=== PATIENT | female | born 1965 | race Hispanic/Latino ===

== ENCOUNTER 2016-06-16 22:23 | Emergency (ER) | payer OTHER ==
[2016-06-16 22:59] LABS: #Basophils 0.1 thou/uL (0.0-0.2); #Eosinphils 0.1 thou/uL (0.0-0.7); #Lymphocytes 2.6 thou/uL (1.20-3.40); #Monocytes 0.4 thou/uL (0.11-0.59); #Neutrophils 2.5 thou/uL (1.40-6.50); %Basophils 1.2 % (0.0-1.0); %Eosinophils 1.6 % (0.0-10.0); %Monocytes 7.5 % (0.0-10.0); Hematocrit 46.6 % (36.0-47.0); Mean Platelet Volume 7.7 fL (7.4-10.4); White Blood Cell (WBC) Count 5.7 thou/uL (4.8-10.8)
[2016-06-16 23:11] LABS: ALT (SGPT) 19 U/L (0-55); AST (SGOT) 16 U/L (5-34); Alkaline Phosphatase 129 U/L (40-150); Anion Gap 13 mmol/L (10-20); BUN (Urea Nitrogen) 15 mg/dL (9.8-20.1); Bilirubin, Total 0.2 mg/dL (0.2-1.2); Calc. Creatinine Clearance 0 mL/min (70-130); Carbon Dioxide 26 mmol/L (22-29); Chloride 108 mmol/L (98-107); Estimated GFR-MDRD Greater than 90; Globulin 2.4 g/dL (2.4-3.5)
[2016-06-16 23:14] LABS: Troponin I Less than 0.010 ng/mL (< 0.028)
[2016-06-17] MEDS ORDERED: Nitroglycerin 2% Ointment 1 INCH/1 GM Packet ONE (00:07)
--- NOTE | 2016-06-17 00:42 | ERRECORD ---
[facility] EMERGENCY RECORD HPI CHEST PAIN (22:41 WMEI) CHIEF COMPLAINT: Patient presents for evaluation of chest pain, ongoing, Patient presents for evaluation of down to 5/10. HISTORIAN: History provided by patient. LOCATION: Symptoms are localized, most severe in substernal area. QUALITY: Pain is dull in nature, described as a sensation of fullness. TIME COURSE: Sudden onset of symptoms, Symptoms are improving, 20/30 min. ASSOCIATED WITH: No associated nausea, No associated shortness of breath, hot flash. EXACERBATED BY: Patient's condition exacerbated by nothing. RELIEVED BY: Patient's condition relieved by nothing. HEART SCORE: Patients history is Moderately Suspicious (1), Patients ECG is normal (0), Patients age is greater than 45 and less than 65 (1), Patient has 1 or 2 risk factors (1). WELLS CRITERIA FOR PE: No clinical signs and symptoms of a DVT (0), Patient does not have, or is likely to not have, a primary diagnosis of PE (0), Patient's heart rate is less than 100 (0), Patient has no history of immobilization within 3 days, nor any surgical history within the past 4 weeks (0), Patient has not had an objectively diagnosed PE or DVT previously (0), Patient does not have hemoptysis (0), Patient has not had treatment for malignancy within the last 6 months, nor palliative (0). ROS (22:43 WMEI) CONSTITUTIONAL: Historian denies chills, denies fatigue, denies fever. EYES: Historian denies eye pain, denies eye discharge. ENT: Historian denies rhinorrhea, denies sore throat. CARDIOVASCULAR: Historian reports chest pain, no radiation, Historian denies exercise intolerance. RESPIRATORY: Historian denies cough, denies shortness of breath. GI: Historian denies abdominal pain, denies nausea, denies vomiting. GENITOURINARY FEMALE: Historian denies frequency, denies urgency. MUSCULOSKELETAL: Historian denies joint stiffness, denies joint swelling. SKIN: Historian denies skin changes, denies skin lesions. NEUROLOGIC: Historian denies focal weakness, denies mental status changes. ALLERGIC/IMMUNOLOGIC: Historian denies eczema, denies food allergies. PSYCHIATRIC: Historian denies depression, denies drug abuse. PAST MEDICAL HISTORY MEDICAL HISTORY: No past medical history of cardiac disease, No &a-1R&a+25V*p+0X*[id number]*c202B*c15G*c2P*p-0X&a-25V&a+1R Name: Ashely Del Angel : 1965 F51 MedRec: [id number] AcctNum: [id number] Prepared: FriJun 17, 2016 00:24 by Interface Page 1 of 4 pMD [facility] EMERGENCY RECORD past medical history of diabetes. (22:46 WMEI) Notes: 5 slip disk. hx [place]. HTN non compliant with treatment. reviewed 06/16/16. (22:44 CHOB) FEMALE SURGICAL HISTORY: plate put in neck due to slip disk. lymph node removed in neck., Surgical history of hysterectomy, Notes: partial. reviewed 06/16/16. (22:44 CHOB) PSYCHIATRIC HISTORY: No previous psychiatric history. reviewed 06/16/16. (22:44 CHOB) SOCIAL HISTORY: Patient denies alcohol use, Patient denies drug use, Patient currently uses tobacco, smokes cigarettes, Patient smokes 1 pack per day. reviewed 06/16/16. (22:44 CHOB) Patient currently uses tobacco, smokes cigarettes, daily. (22:46 WMEI) KNOWN ALLERGIES Bactrim DS: Severity: Moderate, Source: Patient, - burning to chest CECHLOR (Unconfirmed): Reaction: Rash Ceclor: Reaction: Rash, Source: Patient esomeprazole magnesium (Unconfirmed): Reaction: SEVERE HEADACHES metaxalone (Unconfirmed): Reaction: SEVERE N/V NexIUM: Severity: Mild, Source: Patient, - migraine Skelaxin: Severity: Moderate, Source: Patient, - vomting sulfamethoxazole (Unconfirmed): Reaction: "CHEST VASQUES" trimethoprim (Unconfirmed): Reaction: "CHEST VASQUES" CURRENT MEDICATIONS (22:41 CHOB) ranitidine HCl: CAPSULE : Strength - 150 mg : ORAL Patient Dose: Oral once a day (in the morning).dose unknown. VITAL SIGNS VITAL SIGNS: BP: 155/96, Pulse: 87 (Regular), Resp: 18 (Non-Labored), Temp: 97.6 (Oral), Pain: 5 (Intermittent), O2 sat: 98 on Room Air, Time: 06/16/2016 22:35. (22:35 CHOB) BP: 127/84, Pulse: 78, Resp: 16, Pain: 4, O2 sat: 99 on Room Air, Time: 06/16/2016 23:00. (23:00 LSMI) BP: 124/77, Pulse: 82, Resp: 18, Pain: 5, O2 sat: 99 on Room Air, Time: 06/16/2016 23:19. (23:19 LSMI) BP: 125/81, Pulse: 78, Resp: 20, O2 sat: 98 on Room Air, Time: 06/16/2016 23:45. (23:45 LSMI) BP: 169/90, Pulse: 83, Resp: 22, Temp: 97.9 (Oral), Pain: 4 (Intermittent), O2 sat: 97 on Room Air, Time: 06/17/2016 00:12. (FriJun 17, 2016 00:12 LSMI) PHYSICAL EXAM (22:44 WMEI) CONSTITUTIONAL: Vital Signs Reviewed, Patient appears non toxic, Patient alert and oriented to person, place and time. EYES: Conjunctiva, Sclera. &a-1R&a+25V*p+0X*[id number]*c202B*c15G*c2P*p-0X&a-25V&a+1R Name: Ashely Del Angel : 1965 F51 MedRec: [id number] AcctNum: [id number] Prepared: FriJun 17, 2016 00:24 by Interface Page 2 of 4 D [facility] EMERGENCY RECORD ENT: Ear exam normal, Nose exam normal, Pharynx exam normal. NECK: Neck exam included findings of normal range of motion, Trachea midline. RESPIRATORY CHEST: Breath sounds clear. CARDIOVASCULAR: Heart rate regular rate and rhythm, Heart sounds normal. ABDOMEN FEMALE: Abdominal exam included findings of abdomen tender, to the left upper quadrant, mild intensity, Liver normal, Spleen normal, no distension. BACK: Back exam included findings of normal inspection, range of motion normal. UPPER EXTREMITY: Upper extremity exam included findings of inspection normal, Range of motion normal, Motor strength normal. LOWER EXTREMITY: Lower extremity exam included findings of inspection normal, Range of motion normal, Motor strength normal. NEURO: Nancy coma scale 15, Neuro exam findings include patient oriented to person, place and time, Speech normal, Gait normal. SKIN: Skin exam included findings of skin warm, dry, and normal in color. LYMPHATIC: Lymphatic exam normal. PSYCHIATRIC: Psychiatric exam included findings of patient oriented to person place and time, Normal affect, Judgment normal, Insight normal. EKG INTERPRETATION (FriJun 17, 2016 00:03 WMEI) 12 LEAD EKG INTERPRETATION: 12 lead EKG interpreted by Emergency Department Physician at time of study, 12 lead EKG shows, with no ectopics. RADIOLOGYINTERPRETATION (FriJun 17, 2016 00:03 WMEI) CMM INSPECTOR: Preliminary review of x-rays by, ED Physician, chest wnl. MEDICATION ADMINISTRATION SUMMARY Drug Name: nitroglycerin transdermal, Dose Ordered: 1 inch, Route: Topical, Status: Given, Time: 00:05 06/17/2016, Drug Name: Adult Low Dose Aspirin, Dose Ordered: 324 mg, Route: Oral, Status: Given, Time: 22:39 06/16/2016, Detailed record available in Medication Service section. PROBLEM LIST No recorded problems DIAGNOSIS (FriJun 17, 2016 00:21 WMEI) FINAL: PRIMARY: chest pain rule out mi. PRESCRIPTION No recorded prescriptions &a-1R&a+25V*p+0X*[id number]*c202B*c15G*c2P*p-0X&a-25V&a+1R Name: Ashely Del Angel : 1965 F51 MedRec: [id number] AcctNum: [id number] Prepared: FriJun 17, 2016 00:24 by Interface Page 3 of 4 pMD [facility] EMERGENCY RECORD DISPOSITION PATIENT: Disposition Type: Transfer, Disposition: Transfer to [facility], Disposition Transport: Ambulance, Condition: Fair. (FriJun 17, 2016 00:21 WMEI) Patient left the department. (FriJun 17, 2016 00:21 CHOB) [place]: JOSE ALFREDO=GUILLERMO Miranda Christina LSMI=SKYE Santiago Leah WMEI=DO Conde William &a-1R&a+25V*p+0X*[id number]*c202B*c15G*c2P*p-0X&a-25V&a+1R Name: Ashely Del Angel : 1965 F51 MedRec: [id number] AcctNum: [id number] Prepared: FriJun 17, 2016 00:24 by Interface Page 4 of 4 pMD MTDD
--- NOTE | 2016-06-17 00:53 | PICIS ---
[facility] EMERGENCY RECORD TRIAGE ([place] Jun 16, 2016 22:39 CHOB) TRIAGE NOTES: chest pain started 30 minutes ago. pain is located midsternal and just to the left. pt denies soa. states pain radiates to rt side. no other c/c voiced. pt was sitting watching tv when pain started. pt states she had a hot flash when pain started. denies diaphoresis. ([place] Jun 16, 2016 22:39 CHOB) PATIENT: NAME: Ashely Del Angel, AGE: 51, GENDER: female, : Sun 1965, TIME OF GREET: [place] Jun 16, 2016 22:24, PREFERRED LANGUAGE: Latvian, ETHNICITY: or , ECODE BILLING MAP: [facility], SSN: [id number], Zip Code: [address], KG WEIGHT: 53.52 (est.), PHONE: , , , PERSON ID: [id number], PAYMENT: [place], PCP: MD Pimentel Kyle. ([place] Jun 16, 2016 22:39 CHOB) COMPLAINT: HIGH RISK COMPLAINT: Chest Pain. ([place] Jun 16, 2016 22:39 CHOB) ADMISSION: URGENCY: 2 Emergent, ADMISSION SOURCE: Home, TRANSPORT: CAR, BED: ER -01. ([place] Jun 16, 2016 22:39 CHOB) ASSESSMENT: Assessment: PT A/OX4, GCS 15 (4,5,6) SPEAKS FULL SENTENCES, SKIN PWD, RESPIRATIONS EVEN NON LABORED. AMBULATES WITH STEADY GAIT. NO ACUTE DISTRESS NOTED., Symptoms began 06/16/2016 22:15. (22:44 CHOB) PAIN: Patient complains of pain described as, burning, Location MID CHEST, Pain is intermittent, No aggravating factors, No efforts tried to relieve symptoms. (22:44 CHOB) IMMUNIZATIONS: Flu vaccine not up to date, Tetanus immunization up to date, Date of immunization: 2011. (22:44 CHOB) SIRS SCORING: Heart Rate 55-109 (0), Temp range 96.8-101.1 (0), respiratory rate 12-24 (0), Mental Status altered: no (0), Infection or Suspected Infection: No. (22:44 CHOB) TRIAGE SCREENING: Patient denies suicidal ideation, Patient denies presence of domestic violence. (22:44 CHOB) PROVIDERS: TRIAGE NURSE: Milagros Miranda RN. ([place] Jun 16, 2016 22:39 CHOB) VITAL SIGNS: BP 155/96, Pulse 87, (Regular), Resp 18, (Non-Labored), Temp 97.6, (Oral), Pain 5, (Intermittent), O2 Sat 98, on Room Air, Time 06/16/2016 22:35. (22:35 CHOB) PREVIOUS VISIT ALLERGIES: Bactrim DS, Ceclor, NexIUM, Skelaxin. ([place] Jun 16, 2016 22:39 CHOB) Bactrim DS, Ceclor, NexIUM, Skelaxin. (22:44 CHOB) KNOWN ALLERGIES Bactrim DS: Severity: Moderate, Source: Patient, - burning to chest CECHLOR (Unconfirmed): Reaction: Rash Ceclor: Reaction: Rash, Source: Patient esomeprazole magnesium (Unconfirmed): Reaction: SEVERE HEADACHES metaxalone (Unconfirmed): Reaction: SEVERE N/V NexIUM: Severity: Mild, Source: Patient, - migraine Skelaxin: Severity: Moderate, Source: Patient, - vomting &a-1R&a+25V*p+0X*e6814Y*c202B*c15G*c2P*p-0X&a-25V&a+1R Name: Ashely Del Angel : 1965 F51 MedRec: [id number] AcctNum: [id number] Prepared: FriJun 17, 2016 01:31 by Interface Page 1 of 9 pMD [facility] EMERGENCY RECORD sulfamethoxazole (Unconfirmed): Reaction: "CHEST VASQUES" trimethoprim (Unconfirmed): Reaction: "CHEST VASQUES" CURRENT MEDICATIONS (22:41 CHOB) ranitidine HCl: CAPSULE : Strength - 150 mg : ORAL Patient Dose: Oral once a day (in the morning).dose unknown. VITAL SIGNS VITAL SIGNS: BP: 155/96, Pulse: 87 (Regular), Resp: 18 (Non-Labored), Temp: 97.6 (Oral), Pain: 5 (Intermittent), O2 sat: 98 on Room Air, Time: 06/16/2016 22:35. (22:35 CHOB) BP: 127/84, Pulse: 78, Resp: 16, Pain: 4, O2 sat: 99 on Room Air, Time: 06/16/2016 23:00. (23:00 LSMI) BP: 124/77, Pulse: 82, Resp: 18, Pain: 5, O2 sat: 99 on Room Air, Time: 06/16/2016 23:19. (23:19 LSMI) BP: 125/81, Pulse: 78, Resp: 20, O2 sat: 98 on Room Air, Time: 06/16/2016 23:45. (23:45 LSMI) BP: 169/90, Pulse: 83, Resp: 22, Temp: 97.9 (Oral), Pain: 4 (Intermittent), O2 sat: 97 on Room Air, Time: 06/17/2016 00:12. (FriJun 17, 2016 00:12 LSMI) BP: 169/80, Pulse: 84, Resp: 18, Temp: 97.2, Pain: 5, O2 sat: 98 on RA, Time: 06/17/2016 00:20. (FriJun 17, 2016 00:20 CHOB) NURSING ASSESSMENT: CARDIOVASCULAR (22:44 CHOB) CONSTITUTIONAL: Complex assessment performed, Patient arrives ambulatory, Gait steady, History obtained from patient, Patient appears comfortable, Patient cooperative, Patient alert, Oriented to person, place and time, Skin warm, Skin dry, Skin normal in color, Mucous membranes pink, Mucous membranes moist, Patient is well-groomed, Patient complains of CHEST PAIN. PAIN: Patient with sudden onset of pain, burning pain, midsternal, Pain radiates, RT SIDE OF BACK, on a scale 0-10 patient rates pain as 5, Pain exacerbated by nothing. CARDIOVASCULAR: Cardiovascular assessment findings include heart rate normal, Heart rhythm normal sinus, Heart sounds normal, S1, S2, Left radial pulse +3(easily palpated, considered normal), Right radial pulse +3(easily palpated, considered normal), Left dorsalis pedis pulse +3(easily palpated, considered normal), Right dorsalis pedis pulse +3(easily palpated, considered normal). RESPIRATORY/CHEST: Breath sounds clear, Respiratory assessment findings include respiratory effort easy, Respirations regular, Conversing normally, Neck and chest exam findings include trachea midline, Chest expansion equal, Chest movement symmetrical, no signs of distress, no associated cough noted, no associated fever, no associated fume exposure. SAFETY: Side rails up, Cart/Stretcher in lowest position, Family at bedside, Call light within reach, Hospital ID band on. &a-1R&a+25V*p+0X*m9766O*c202B*c15G*c2P*p-0X&a-25V&a+1R Name: Ashely Del Angel : 1965 F51 MedRec: [id number] AcctNum: [id number] Prepared: FriJun 17, 2016 01:31 by Interface Page 2 of 9 D [facility] EMERGENCY RECORD NURSING PROCEDURE: EVAPORATOR (22:41 CHOB) PATIENT IDENTIFIER: Patient actively involved in identification process, Patient's identity verified by patient stating name, Patient's identity verified by patient stating date. EVAPORATOR: Cardiac monitoring indicated for complaint of chest pain, Patient placed on office manager, Heart rate: 85, showing normal sinus rhythm, without ectopy, with no ST segment changes, Strip posted on chart, Patient placed on non-invasive blood pressure monitor, with disposable blood pressure cuff applied, Patient placed on continuous pulse oximetry, Adult/pediatric oxisensor applied, Oxygen saturation 99%. FOLLOW-UP: After procedure, alarms set and on, After procedure, patient tolerating monitoring. SAFETY: Side rails up, Cart/Stretcher in lowest position, Family at bedside, Call light within reach, Hospital ID band on. NURSING PROCEDURE: EKG CHART (22:40 CHOB) PATIENT IDENTIFIER: Patient actively involved in identification process, Patient's identity verified by patient stating name, Patient's identity verified by patient stating date. EKG: EKG indicated for complaint of chest pain, 12 lead EKG performed on the left chest, done by SKYE GARCIA, first EKG. FOLLOW-UP: After procedure, EKG for interpretation given to Dr. CONDE, Notes: NSR. SAFETY: Side rails up, Cart/Stretcher in lowest position, Family at bedside, Call light within reach, Hospital ID band on. NURSING PROCEDURE: IV (22:50 CHOB) PATIENT IDENITIFIER: Patient actively involved in identification process, Patient's identity verified by patient stating name, Patient's identity verified by patient stating date. IV SITE 1: IV therapy indicated for hydration, IV therapy indicated for medication administration, IV established, to the right antecubital, using a 20 gauge catheter, in one attempt, IV site prepped with CHLORAPREP, Saline lock established, Flushed with normal saline (mls): 10, Labs drawn at time of placement, labeled in the presence of the patient and sent to lab. FOLLOW-UP SITE 1: After procedure, sterile transparent dressing applied, After procedure, IV line connections checked and properly labeled. SAFETY: Side rails up, Cart/Stretcher in lowest position, Family at bedside, Call light within reach, Hospital ID band on. NURSING PROCEDURE: NURSE NOTES NURSES NOTES: Notes: TRANSFER CENTER CONTACTED/INITIAL CONTACT MADE W/ RECEIVING FACILITY AT 0003. (FriJun 17, 2016 00:03 CHOB) Notes: PER MILAGROS W/ TRANSFER CENTER: ADMITTING PHYSICANDR RODRIGUEZ, OBTAINED AT 0007. (FriJun 17, 2016 00:07 CHOB) &a-1R&a+25V*p+0X*l4684R*c202B*c15G*c2P*p-0X&a-25V&a+1R Name: BeanAshely : 1965 F51 MedRec: [id number] AcctNum: [id number] Prepared: FriJun 17, 2016 01:31 by Interface Page 3 of 9 pMD [facility] EMERGENCY RECORD Notes: EMS NOTIFIED AND REQUESTED TRANSFER TO [facility]. (FriJun 17, 2016 00:08 CHOB) Notes: EMS ARRIVED. (FriJun 17, 2016 00:18 CHOB) Notes: PT TO [facility] VIA MEDIC 21 PER CART WITHOUT INCIDENT FOR DX CHEST PAIN. (FriJun 17, 2016 00:20 CHOB) NURSING PROCEDURE: TRANSFER (FriJun 17, 2016 00:20 CHOB) TRANSFER: Reason for transfer need for specialized care, Diagnosis: CHEST PAIN, Accepting institution: [facility], Accepting physician: MICHAEL, Referring physician: OREN, Transported by non-urgent ambulance, Report called to receiving facility, GUILLERMO ZAIID, Provided opportunity to answer questions, Bed assigned TO ER, Summary of Care printed, Copy of patient record prepared for receiving facility, Status of patient's valuables documented on chart, Medication reconciliation form prepared and sent to receiving facility, Patient consent for transfer signed, Patient given appropriate sedation for safe transport, Family member contacted, FAMILIY BEDSIDE. BELONGINGS: Belongings and valuables with patient at time of discharge include:, Belongings remain with patient. EQUIPMENT WITH PATIENT: Equipment with patient at time of transfer office manager, Saline lock intact and patent at time of transfer, Equipment with patient at time of transfer O2 MONITOR. SAFETY: Side rails up, Cart/Stretcher in lowest position, Family at bedside, Call light within reach, Hospital ID band on. VITAL SIGNS: BP: 169, / 80, Pulse: 84, Resp: 18, Temp: 97.2, Pain: 5, O2 sat: 98, on: RA. ORDER DETAILS Order Name: Cardiac Profile w/CKMB & Troponin - I, Status: Active, Time: 22:41 06/16/2016, User: [email or web address], - Ordered for: DO Conde William, - Entered by: DO Conde William - Sun Jun 16, 2016 22:41, - Quantity: 1, Order Name: CBC with Differential, Status: Active, Time: 22:41 06/16/2016, User: [email or web address], - Ordered for: DO Conde William, - Entered by: DO Conde William - Sun Jun 16, 2016 22:41, - Quantity: 1, Order Name: Comprehensive Metabolic Panel, Status: Active, Time: 22:41 06/16/2016, User: [email or web address], - Ordered for: DO Conde William, - Entered by: DO Conde William - Sun Jun 16, 2016 22:41, - Quantity: 1, Order Name: D-Dimer (Quantitative), Status: Active, Time: 22:41 06/16/2016, User: JAGDEEP, - Ordered for: DO Conde William, - Entered by: DO Conde William - Sun Jun 16, 2016 22:41, - Quantity: 1, &a-1R&a+25V*p+0X*b3201U*c202B*c15G*c2P*p-0X&a-25V&a+1R Name: Ashely Del Angel : 1965 F51 MedRec: [id number] AcctNum: [id number] Prepared: FriJun 17, 2016 01:31 by Interface Page 4 of 9 D [facility] EMERGENCY RECORD Order Name: EKG 12 Lead in Emergency Room, Status: Active, Time: 22:41 06/16/2016, User: [email or web address], - Ordered for: DO Conde William, - Entered by: DO Conde William - Sun Jun 16, 2016 22:41, - Quantity: 1, Order Name: SALINE LOCK, Status: Done, Time: 22:49 06/16/2016, User: LSMI, - Ordered for: DO Conde William, - Entered by: DO Conde William - Sun Jun 16, 2016 22:41, - Quantity: 1, Order Name: Thyroid Stimulating Hormone, Status: Active, Time: 22:47 06/16/2016, User: JAGDEEP, - Ordered for: DO Conde William, - Entered by: DO Conde William - Sun Jun 16, 2016 22:47, - Quantity: 1, Order Name: XR Chest 1 View Portable, Status: Active, Time: 22:41 06/16/2016, User: JAGDEEP, - Ordered for: DO Conde William, - Entered by: DO Conde William - Sun Jun 16, 2016 22:41, - Quantity: 1. MEDICATION ADMINISTRATION SUMMARY Drug Name: nitroglycerin transdermal, Dose Ordered: 1 inch, Route: Topical, Status: Given, Time: 00:05 06/17/2016, Drug Name: Adult Low Dose Aspirin, Dose Ordered: 324 mg, Route: Oral, Status: Given, Time: 22:39 06/16/2016, Detailed record available in Medication Service section. MEDICATION SERVICE Adult Low Dose Aspirin: Order: Adult Low Dose Aspirin (aspirin) - Dose: 324 mg : Oral Schedule: Now Ordered by: Alexandre Conde DO Entered by: SKYE Castro Jun 16, 2016 22:53 , Acknowledged by: SKYE Castro Jun 16, 2016 22:54 Documented as given by: SKYE Castro Jun 16, 2016 22:39 Patient, Medication, Dose, Route and Time verified prior to administration. Site: Medication administered P.O., Correct patient, time, route, dose and medication confirmed prior to administration, Patient advised of actions and side-effects prior to administration, Allergies confirmed and medications reviewed prior to administration, Patient in position of comfort, Side rails up, Cart in lowest position, Family at bedside, Call light in reach. nitroglycerin transdermal: Order: nitroglycerin transdermal (nitroglycerin) - Dose: 1 inch : Topical Schedule: Now Ordered by: Alexandre Conde DO Entered by: Alexandre Conde DO FriJun 17, 2016 00:06 , &a-1R&a+25V*p+0X*k6213Y*c202B*c15G*c2P*p-0X&a-25V&a+1R Name: Ashely Del Angel : 1965 F51 MedRec: [id number] AcctNum: [id number] Prepared: FriJun 17, 2016 01:31 by Interface Page 5 of 9 pMD [facility] EMERGENCY RECORD Acknowledged by: Altagracia Santiago LVN FriJun 17, 2016 00:06 Documented as given by: Altagracia Santiago LVN FriJun 17, 2016 00:05 Patient, Medication, Dose, Route and Time verified prior to administration. Skin cleansed prior to administration, Shaving required prior to administration, Correct patient, time, route, dose and medication confirmed prior to administration, Patient advised of actions and side-effects prior to administration, Allergies confirmed and medications reviewed prior to administration, Advised not to ambulate without assistance, Patient in position of comfort, Side rails up, Cart in lowest position, Family at bedside, Call light in reach. HPI CHEST PAIN (22:41 WMEI) CHIEF COMPLAINT: Patient presents for evaluation of chest pain, ongoing, Patient presents for evaluation of down to 5. HISTORIAN: History provided by patient. LOCATION: Symptoms are localized, most severe in substernal area. QUALITY: Pain is dull in nature, described as a sensation of fullness. TIME COURSE: Sudden onset of symptoms, Symptoms are improving, 20/30 min. ASSOCIATED WITH: No associated nausea, No associated shortness of breath, hot flash. EXACERBATED BY: Patient's condition exacerbated by nothing. RELIEVED BY: Patient's condition relieved by nothing. HEART SCORE: Patients history is Moderately Suspicious (1), Patients ECG is normal (0), Patients age is greater than 45 and less than 65 (1), Patient has 1 or 2 risk factors (1). WELLS CRITERIA FOR PE: No clinical signs and symptoms of a DVT (0), Patient does not have, or is likely to not have, a primary diagnosis of PE (0), Patient's heart rate is less than 100 (0), Patient has no history of immobilization within 3 days, nor any surgical history within the past 4 weeks (0), Patient has not had an objectively diagnosed PE or DVT previously (0), Patient does not have hemoptysis (0), Patient has not had treatment for malignancy within the last 6 months, nor palliative (0). ROS (22:43 WMEI) CONSTITUTIONAL: Historian denies chills, denies fatigue, denies fever. EYES: Historian denies eye pain, denies eye discharge. ENT: Historian denies rhinorrhea, denies sore throat. CARDIOVASCULAR: Historian reports chest pain, no radiation, Historian denies exercise intolerance. RESPIRATORY: Historian denies cough, denies shortness of breath. GI: Historian denies abdominal pain, denies nausea, denies vomiting. &a-1R&a+25V*p+0X*i2159V*c202B*c15G*c2P*p-0X&a-25V&a+1R Name: Ashely Del Angel : 1965 F51 MedRec: [id number] AcctNum: [id number] Prepared: FriJun 17, 2016 01:31 by Interface Page 6 of 9 pMD [facility] EMERGENCY RECORD GENITOURINARY FEMALE: Historian denies frequency, denies urgency. MUSCULOSKELETAL: Historian denies joint stiffness, denies joint swelling. SKIN: Historian denies skin changes, denies skin lesions. NEUROLOGIC: Historian denies focal weakness, denies mental status changes. ALLERGIC/IMMUNOLOGIC: Historian denies eczema, denies food allergies. PSYCHIATRIC: Historian denies depression, denies drug abuse. PAST MEDICAL HISTORY MEDICAL HISTORY: No past medical history of cardiac disease, No past medical history of diabetes. (22:46 WMEI) Notes: 5 slip disk. hx Guillian Benicia. HTN non compliant with treatment. reviewed 06/16/16. (22:44 CHOB) FEMALE SURGICAL HISTORY: plate put in neck due to slip disk. lymph node removed in neck., Surgical history of hysterectomy, Notes: partial. reviewed 06/16/16. (22:44 CHOB) PSYCHIATRIC HISTORY: No previous psychiatric history. reviewed 06/16/16. (22:44 CHOB) SOCIAL HISTORY: Patient denies alcohol use, Patient denies drug use, Patient currently uses tobacco, smokes cigarettes, Patient smokes 1 pack per day. reviewed 06/16/16. (22:44 CHOB) Patient currently uses tobacco, smokes cigarettes, daily. (22:46 WMEI) PHYSICAL EXAM (22:44 WMEI) CONSTITUTIONAL: Vital Signs Reviewed, Patient appears non toxic, Patient alert and oriented to person, place and time. EYES: Conjunctiva, Sclera. ENT: Ear exam normal, Nose exam normal, Pharynx exam normal. NECK: Neck exam included findings of normal range of motion, Trachea midline. RESPIRATORY CHEST: Breath sounds clear. CARDIOVASCULAR: Heart rate regular rate and rhythm, Heart sounds normal. ABDOMEN FEMALE: Abdominal exam included findings of abdomen tender, to the left upper quadrant, mild intensity, Liver normal, Spleen normal, no distension. BACK: Back exam included findings of normal inspection, range of motion normal. UPPER EXTREMITY: Upper extremity exam included findings of inspection normal, Range of motion normal, Motor strength normal. LOWER EXTREMITY: Lower extremity exam included findings of inspection normal, Range of motion normal, Motor strength normal. NEURO: [place] coma scale 15, Neuro exam findings include patient oriented to person, place and time, Speech normal, Gait normal. SKIN: Skin exam included findings of skin warm, dry, and normal in color. LYMPHATIC: Lymphatic exam normal. &a-1R&a+25V*p+0X*g4805R*c202B*c15G*c2P*p-0X&a-25V&a+1R Name: BeanTierrajustin Jhaveri : 1965 F51 MedRec: [id number] AcctNum: [id number] Prepared: FriJun 17, 2016 01:31 by Interface Page 7 of 9 pMD [facility] EMERGENCY RECORD PSYCHIATRIC: Psychiatric exam included findings of patient oriented to person place and time, Normal affect, Judgment normal, Insight normal. LAB INTERPRETATION (FriJun 17, 2016 00:04 WMEI) INTERPRETATION: I reviewed the lab results, Cardiac enzymes normal. EVENTS TRANSFER: Triage to Emergency Emergency Room -01. (22:39 CHOB) Removed from Emergency Emergency Room -01. (FriJun 17, 2016 00:21 CHOB) RADIOLOGYINTERPRETATION (FriJun 17, 2016 00:03 WMEI) PSYCHIATRIC TECHNICIAN ASSISTANT: Preliminary review of x-rays by, ED Physician, chest wnl. EKG INTERPRETATION (FriJun 17, 2016 00:03 WMEI) 12 LEAD EKG INTERPRETATION: 12 lead EKG interpreted by Emergency Department Physician at time of study, 12 lead EKG shows, with no ectopics. PROBLEM LIST No recorded problems DIAGNOSIS (FriJun 17, 2016 00:21 WMEI) FINAL: PRIMARY: chest pain rule out mi. DISPOSITION PATIENT: Disposition Type: Transfer, Disposition: Transfer to [facility], Disposition Transport: Ambulance, Condition: Fair. (FriJun 17, 2016 00:21 WMEI) Patient left the department. (FriJun 17, 2016 00:21 CHOB) PRESCRIPTION No recorded prescriptions IMAGING *EKG: Image captured from scanner. (23:00 LSMI) MONITOR STRIPS: Image captured from scanner. (FriJun 17, 2016 00:15 CHOB) *SUPPLY CHARGE SHEET: Image captured from scanner. (FriJun 17, 2016 00:15 CHOB) CONSENTS: Image captured from scanner. (FriJun 17, 2016 00:16 CHOB) *MEMORANDUM OF TRANSFER: Image captured from scanner. (FriJun 17, 2016 00:16 CHOB) PHYSICIAN CERTIFICATION STATEMENT: Image captured from scanner. (FriJun 17, 2016 00:16 CHOB) ADMIN (FriJun 17, 2016 01:18 WMEI) &a-1R&a+25V*p+0X*a4388M*c202B*c15G*c2P*p-0X&a-25V&a+1R Name: Bean Ashely G : 1965 F51 MedRec: [id number] AcctNum: [id number] Prepared: FriJun 17, 2016 01:31 by Interface Page 8 of 9 pMD [facility] EMERGENCY RECORD DIGITAL SIGNATURE: DO Conde William. Cal[place]: CHOB=GUILLERMO Miranda Christina LSMI=SKYE Santiago Leah WMEI=Meiser, DO, Alexandre &a-1R&a+25V*p+0X*p2437Y*c202B*c15G*c2P*p-0X&a-25V&a+1R Name: Ashely Del Angel : 1965 F51 MedRec: [id number] AcctNum: [id number] Prepared: FriJun 17, 2016 01:31 by Interface Page 9 of 9 pMD MTDD
--- NOTE | 2016-06-17 02:12 | ERRECORD ---
[facility] EMERGENCY RECORD HPI CHEST PAIN (22:41 WMEI) CHIEF COMPLAINT: Patient presents for evaluation of chest pain, ongoing, Patient presents for evaluation of down to 5/10. HISTORIAN: History provided by patient. LOCATION: Symptoms are localized, most severe in substernal area. QUALITY: Pain is dull in nature, described as a sensation of fullness. TIME COURSE: Sudden onset of symptoms, Symptoms are improving, 20/30 min. ASSOCIATED WITH: No associated nausea, No associated shortness of breath, hot flash. EXACERBATED BY: Patient's condition exacerbated by nothing. RELIEVED BY: Patient's condition relieved by nothing. HEART SCORE: Patients history is Moderately Suspicious (1), Patients ECG is normal (0), Patients age is greater than 45 and less than 65 (1), Patient has 1 or 2 risk factors (1). WELLS CRITERIA FOR PE: No clinical signs and symptoms of a DVT (0), Patient does not have, or is likely to not have, a primary diagnosis of PE (0), Patient's heart rate is less than 100 (0), Patient has no history of immobilization within 3 days, nor any surgical history within the past 4 weeks (0), Patient has not had an objectively diagnosed PE or DVT previously (0), Patient does not have hemoptysis (0), Patient has not had treatment for malignancy within the last 6 months, nor palliative (0). ROS (22:43 WMEI) CONSTITUTIONAL: Historian denies chills, denies fatigue, denies fever. EYES: Historian denies eye pain, denies eye discharge. ENT: Historian denies rhinorrhea, denies sore throat. CARDIOVASCULAR: Historian reports chest pain, no radiation, Historian denies exercise intolerance. RESPIRATORY: Historian denies cough, denies shortness of breath. GI: Historian denies abdominal pain, denies nausea, denies vomiting. GENITOURINARY FEMALE: Historian denies frequency, denies urgency. MUSCULOSKELETAL: Historian denies joint stiffness, denies joint swelling. SKIN: Historian denies skin changes, denies skin lesions. NEUROLOGIC: Historian denies focal weakness, denies mental status changes. ALLERGIC/IMMUNOLOGIC: Historian denies eczema, denies food allergies. PSYCHIATRIC: Historian denies depression, denies drug abuse. PAST MEDICAL HISTORY MEDICAL HISTORY: No past medical history of cardiac disease, No &a-1R&a+25V*p+0X*[id number]*c202B*c15G*c2P*p-0X&a-25V&a+1R Name: Ashely Del Angel : 1965 F51 MedRec: [id number] AcctNum: [id number] Prepared: FriJun 17, 2016 01:24 by Interface Page 1 of 4 pMD [facility] EMERGENCY RECORD past medical history of diabetes. (22:46 WMEI) Notes: 5 slip disk. hx Guillian York. HTN non compliant with treatment. reviewed 06/16/16. (22:44 CHOB) FEMALE SURGICAL HISTORY: plate put in neck due to slip disk. lymph node removed in neck., Surgical history of hysterectomy, Notes: partial. reviewed 06/16/16. (22:44 CHOB) PSYCHIATRIC HISTORY: No previous psychiatric history. reviewed 06/16/16. (22:44 CHOB) SOCIAL HISTORY: Patient denies alcohol use, Patient denies drug use, Patient currently uses tobacco, smokes cigarettes, Patient smokes 1 pack per day. reviewed 06/16/16. (22:44 CHOB) Patient currently uses tobacco, smokes cigarettes, daily. (22:46 WMEI) KNOWN ALLERGIES Bactrim DS: Severity: Moderate, Source: Patient, - burning to chest CECHLOR (Unconfirmed): Reaction: Rash Ceclor: Reaction: Rash, Source: Patient esomeprazole magnesium (Unconfirmed): Reaction: SEVERE HEADACHES metaxalone (Unconfirmed): Reaction: SEVERE N/V NexIUM: Severity: Mild, Source: Patient, - migraine Skelaxin: Severity: Moderate, Source: Patient, - vomting sulfamethoxazole (Unconfirmed): Reaction: "CHEST VASQUES" trimethoprim (Unconfirmed): Reaction: "CHEST VASQUES" CURRENT MEDICATIONS (22:41 CHOB) ranitidine HCl: CAPSULE : Strength - 150 mg : ORAL Patient Dose: Oral once a day (in the morning).dose unknown. VITAL SIGNS VITAL SIGNS: BP: 155/96, Pulse: 87 (Regular), Resp: 18 (Non-Labored), Temp: 97.6 (Oral), Pain: 5 (Intermittent), O2 sat: 98 on Room Air, Time: 06/16/2016 22:35. (22:35 CHOB) BP: 127/84, Pulse: 78, Resp: 16, Pain: 4, O2 sat: 99 on Room Air, Time: 06/16/2016 23:00. (23:00 LSMI) BP: 124/77, Pulse: 82, Resp: 18, Pain: 5, O2 sat: 99 on Room Air, Time: 06/16/2016 23:19. (23:19 LSMI) BP: 125/81, Pulse: 78, Resp: 20, O2 sat: 98 on Room Air, Time: 06/16/2016 23:45. (23:45 LSMI) BP: 169/90, Pulse: 83, Resp: 22, Temp: 97.9 (Oral), Pain: 4 (Intermittent), O2 sat: 97 on Room Air, Time: 06/17/2016 00:12. (FriJun 17, 2016 00:12 LSMI) BP: 169/80, Pulse: 84, Resp: 18, Temp: 97.2, Pain: 5, O2 sat: 98 on RA, Time: 06/17/2016 00:20. (FriJun 17, 2016 00:20 CHOB) PHYSICAL EXAM (22:44 WMEI) CONSTITUTIONAL: Vital Signs Reviewed, Patient appears non toxic, &a-1R&a+25V*p+0X*[id number]*c202B*c15G*c2P*p-0X&a-25V&a+1R Name: Ashely Del Angel : 1965 F51 MedRec: [id number] AcctNum: [id number] Prepared: FriJun 17, 2016 01:24 by Interface Page 2 of 4 pMD [facility] EMERGENCY RECORD Patient alert and oriented to person, place and time. EYES: Conjunctiva, Sclera. ENT: Ear exam normal, Nose exam normal, Pharynx exam normal. NECK: Neck exam included findings of normal range of motion, Trachea midline. RESPIRATORY CHEST: Breath sounds clear. CARDIOVASCULAR: Heart rate regular rate and rhythm, Heart sounds normal. ABDOMEN FEMALE: Abdominal exam included findings of abdomen tender, to the left upper quadrant, mild intensity, Liver normal, Spleen normal, no distension. BACK: Back exam included findings of normal inspection, range of motion normal. UPPER EXTREMITY: Upper extremity exam included findings of inspection normal, Range of motion normal, Motor strength normal. LOWER EXTREMITY: Lower extremity exam included findings of inspection normal, Range of motion normal, Motor strength normal. NEURO: Nancy coma scale 15, Neuro exam findings include patient oriented to person, place and time, Speech normal, Gait normal. SKIN: Skin exam included findings of skin warm, dry, and normal in color. LYMPHATIC: Lymphatic exam normal. PSYCHIATRIC: Psychiatric exam included findings of patient oriented to person place and time, Normal affect, Judgment normal, Insight normal. EKG INTERPRETATION (FriJun 17, 2016 00:03 WMEI) 12 LEAD EKG INTERPRETATION: 12 lead EKG interpreted by Emergency Department Physician at time of study, 12 lead EKG shows, with no ectopics. RADIOLOGYINTERPRETATION (FriJun 17, 2016 00:03 WMEI) OFFICE SERVICES ASSOCIATE: Preliminary review of x-rays by, ED Physician, chest wnl. MEDICATION ADMINISTRATION SUMMARY Drug Name: nitroglycerin transdermal, Dose Ordered: 1 inch, Route: Topical, Status: Given, Time: 00:05 06/17/2016, Drug Name: Adult Low Dose Aspirin, Dose Ordered: 324 mg, Route: Oral, Status: Given, Time: 22:39 06/16/2016, Detailed record available in Medication Service section. PROBLEM LIST No recorded problems DIAGNOSIS (FriJun 17, 2016 00:21 WMEI) FINAL: PRIMARY: chest pain rule out mi. PRESCRIPTION &a-1R&a+25V*p+0X*[id number]*c202B*c15G*c2P*p-0X&a-25V&a+1R Name: Ashely Del Angel : 1965 F51 MedRec: [id number] AcctNum: [id number] Prepared: FriJun 17, 2016 01:24 by Interface Page 3 of 4 pMD [facility] EMERGENCY RECORD No recorded prescriptions DISPOSITION PATIENT: Disposition Type: Transfer, Disposition: Transfer to [facility], Disposition Transport: Ambulance, Condition: Fair. (FriJun 17, 2016 00:21 WMEI) Patient left the department. (FriJun 17, 2016 00:21 CHOB) Calero: CHOMina=GUILLERMO Miranda Christina LSMRohan=SKYE Santiago Leah WMEI=DO Conde William &a-1R&a+25V*p+0X*[id number]*c202B*c15G*c2P*p-0X&a-25V&a+1R Name: Ashely Del Angel : 1965 F51 MedRec: [id number] AcctNum: [id number] Prepared: FriJun 17, 2016 01:24 by Interface Page 4 of 4 pMD MTDD
--- NOTE | 2016-06-17 10:13 | RAD ---
PORTABLE CHEST 06/16/2016 Comparison is made with a 2012 chest film. The heart is normal in size, and the lungs are clear. T here is no mediastinal widening or signs of mass. The aorta is normal in size. There are no conges tive findings or pleural effusions. No lobar infiltrates are seen. IMPRESSION: No acute thoracic findings. POS: HOME
== END 2016-06-17 00:20 | disposition short-term general hospital (02) ==
LOC: BURERS 22:23
DX: R07.9 Chest pain, unspecified (principal); F17.210 Nicotine dependence, cigarettes, uncomplicated
CPT/HCPCS: 71010; 80053; 82553; 84443; 84484; 85025; 85379; 93005

== ENCOUNTER 2016-07-04 09:27 | Outpatient (CLI) | payer OTHER ==
[2016-07-04 11:21] LABS: ALT (SGPT) 19 U/L (0-55); AST (SGOT) 16 U/L (5-34); Alkaline Phosphatase 86 U/L (40-150); Anion Gap 14 mmol/L (10-20); BUN (Urea Nitrogen) 11 mg/dL (9.8-20.1); Bilirubin, Total 0.4 mg/dL (0.2-1.2); Calc. Creatinine Clearance 0 mL/min (70-130); Calcium 9.6 mg/dL (7.8-10.44); Carbon Dioxide 26 mmol/L (22-29); Chloride 106 mmol/L (98-107); Estimated GFR-MDRD Greater than 90; Protein, Total 6.9 g/dL (6.0-8.3)
[2016-07-04 18:11] LABS: Free T3 2.59 pg/mL (1.71-3.71)
== END 2016-07-04 09:28 ==
LOC: HPCALD 09:27
PROVIDERS: ATTEND Family Medicine
DX: E04.1 Nontoxic single thyroid nodule (principal); R03.0 Elevated blood-pressure reading, without diagnosis of hypertension
CPT/HCPCS: 36415; 80053; 84439; 84443; 84481

== ENCOUNTER 2016-08-07 14:08 | Outpatient (CLI) | payer OTHER ==
--- NOTE | 2016-08-07 18:39 | ULT ---
THYROID ULTRASOUND 08/07/16 Comparison is made with the study done last year on 08/11/15. It is done to followup a 5 mm nodule in the lower portion of the right lobe. There has been virtually no change since last year. A small hypoechoic nodule is seen in the mid to inferior portion of the right lobe that today measur es 5 x 3 x 4 mm. This is virtually identical to before. No new nodules were detected. The right lobe measures 4.8 x 1.9 x 1.9 cm. The left lobe measures 4.8 x 1.6 x 1.6 cm. No surrounding adenopathy w as appreciated. IMPRESSION: Stable exam showing mild thyromegaly and a 5 mm right lobe nodule which has not changed since last y ear. POS: HOME
== END 2016-08-07 14:09 | disposition home or self-care (01) ==
LOC: BURULT 14:08
PROVIDERS: ATTEND Orthopaedic Surgery
DX: Z86.39 Personal history of other endocrine, nutritional and metabolic disease (principal)
CPT/HCPCS: 76536

== ENCOUNTER 2016-08-16 13:14 | Emergency (ER) | payer OTHER ==
[2016-08-16] MEDS ORDERED: Adacel (T-DAP) 0.5 ML VIAL ONE (13:22)
[2016-08-16 13:51] LABS: #Basophils 0.1 thou/uL (0.0-0.2); #Eosinphils 0.1 thou/uL (0.0-0.7); #Lymphocytes 3.5 thou/uL (1.20-3.40); #Monocytes 0.4 thou/uL (0.11-0.59); #Neutrophils 5.8 thou/uL (1.40-6.50); %Basophils 1.4 % (0.0-1.0); %Eosinophils 0.8 % (0.0-10.0); %Monocytes 3.9 % (0.0-10.0); Hematocrit 46.2 % (36.0-47.0); Mean Platelet Volume 6.7 fL (7.4-10.4); Red Blood Cell (RBC) Count 4.84 mill/uL (4.20-5.40)
[2016-08-16 14:07] LABS: ALT (SGPT) 24 U/L (0-55); AST (SGOT) 17 U/L (5-34); Alkaline Phosphatase 87 U/L (40-150); Anion Gap 13 mmol/L (10-20); BUN (Urea Nitrogen) 18 mg/dL (9.8-20.1); Bilirubin, Total 0.4 mg/dL (0.2-1.2); CK (CPK) 38 U/L (29-168); Calc. Creatinine Clearance 0 mL/min (70-130); Calcium 9.2 mg/dL (7.8-10.44); Carbon Dioxide 27 mmol/L (22-29); Chloride 106 mmol/L (98-107); Estimated GFR-MDRD 79; Globulin 3.1 g/dL (2.4-3.5); Magnesium 2.2 mg/dL (1.6-2.6); Protein, Total 6.9 g/dL (6.0-8.3)
== END 2016-08-16 15:04 | disposition home or self-care (01) ==
LOC: BURERS 13:14
DX: R53.1 Weakness (principal); E78.5 Hyperlipidemia, unspecified; I10 Essential (primary) hypertension; F17.210 Nicotine dependence, cigarettes, uncomplicated
CPT/HCPCS: 80053; 82533; 82550; 83735; 84443; 85025; 85652; 90715; 96360

== ENCOUNTER 2016-10-30 16:36 | Outpatient (CLI) | payer OTHER | END 2016-10-30 16:37 | disposition home or self-care (01) | LOC: HPCALD 16:36 | PROVIDERS: ATTEND Family Medicine | DX: N39.0 Urinary tract infection, site not specified (principal) | CPT/HCPCS: 87077; 87086; 87186 ==

== ENCOUNTER 2016-12-16 10:56 | Outpatient (CLI) | payer OTHER ==
[2016-12-16 11:50] LABS: #Basophils 0.1 thou/uL (0.0-0.2); #Eosinphils 0.1 thou/uL (0.0-0.7); #Lymphocytes 2.6 thou/uL (1.20-3.40); #Monocytes 0.4 thou/uL (0.11-0.59); #Neutrophils 3.6 thou/uL (1.40-6.50); %Eosinophils 1.5 % (0.0-10.0); %Lymphocytes 38.5 % (21.0-51.0); %Monocytes 6.3 % (0.0-10.0); %Neutrophils 52.7 % (42.0-75.0); Hemoglobin 15.3 g/dL (12.0-16.0); Mean Corpuscular HGB CONC 34.5 g/dL (32.0-36.0); Mean Corpuscular Hemoglobin 32.6 pg (27.0-31.0); Mean Corpuscular Volume 94.4 fl (81.0-99.0); Mean Platelet Volume 7.3 fL (7.4-10.4); Platelet Count 268 thou/uL (130-400); RBC Distribution Width 11.3 % (11.5-14.5); White Blood Cell (WBC) Count 6.7 thou/uL (4.8-10.8)
[2016-12-16 12:06] LABS: ALT (SGPT) 14 U/L (8-55); AST (SGOT) 16 U/L (5-34); Alkaline Phosphatase 90 U/L (40-150); Anion Gap 14 mmol/L (10-20); BUN (Urea Nitrogen) 11 mg/dL (9.8-20.1); Bilirubin, Total 0.6 mg/dL (0.2-1.2); Calc. Creatinine Clearance 0 mL/min (70-130); Calcium 9.4 mg/dL (7.8-10.44); Carbon Dioxide 24 mmol/L (22-29); Cardiac Risk 4.3 (Less than 4.5); Chloride 107 mmol/L (98-107); Cholesterol 222 mg/dl (< 200 Desired); Estimated GFR-MDRD Greater than 90; Globulin 2.5 g/dL (2.4-3.5); Glucose 90 mg/dL (70-105); HDL Cholesterol 52 mg/dL (>60 Neg Risk); LDL Cholesterol, Calculated 119 mg/dL; Potassium 3.9 mmol/L (3.5-5.1); Protein, Total 6.5 g/dL (6.0-8.3); Sodium 141 mmol/L (136-145); Triglycerides 256 mg/dL (Less than 150)
[2016-12-16 12:20] LABS: Free T4 (Free Thyroxine) 0.96 ng/dL (0.70-1.48)
== END 2016-12-16 10:57 | disposition home or self-care (01) ==
LOC: HPCALD 10:56
PROVIDERS: ATTEND Family Medicine
DX: Z00.00 Encounter for general adult medical examination without abnormal findings (principal); E04.1 Nontoxic single thyroid nodule; E78.2 Mixed hyperlipidemia
CPT/HCPCS: 36415; 80053; 80061; 84439; 84443; 85025

== ENCOUNTER 2017-05-31 13:10 | Emergency (ER) | payer OTHER | END 2017-05-31 14:04 | disposition home or self-care (01) | LOC: BURERS 13:10 | DX: J11.1 Influenza due to unidentified influenza virus with other respiratory manifestations (principal); E78.5 Hyperlipidemia, unspecified; I10 Essential (primary) hypertension; F17.210 Nicotine dependence, cigarettes, uncomplicated | CPT/HCPCS: 99282 ==

== ENCOUNTER 2017-08-13 10:33 | Outpatient (CLI) | payer OTHER ==
--- NOTE | 2017-08-13 22:28 | ULT ---
THYROID ULTRASOUND 08/13/17 Comparison is made with last years study dated 08/07/16. The thyroid again measures large with the right lobe being 4.9 x 1.7 x 1.8 cm and the left lobe being 4.5 1.5 x 1.5 cm. As before, there is a small nodule in the mid to inferior portion of the right lobe. Today it measure s 2 x 5 x 4 mm which is virtually the same as before. It is hypoechoic and has not changed over the i nterval. No surrounding adenopathy was seen. IMPRESSION: Thyromegaly with stable small nodule in the inferior part of the right lobe. POS: HOME
== END 2017-08-13 10:34 | disposition home or self-care (01) ==
LOC: BURULT 10:33
PROVIDERS: ATTEND Otolaryngology Plastic Surgery within the Head & Neck
DX: Z08 Encounter for follow-up examination after completed treatment for malignant neoplasm (principal); E04.1 Nontoxic single thyroid nodule; Z86.39 Personal history of other endocrine, nutritional and metabolic disease
CPT/HCPCS: 76536

== ENCOUNTER 2017-12-11 01:32 | Emergency (ER) | payer OTHER ==
[2017-12-11] MEDS ORDERED: traMADol HCl 50 MG TAB ONE (01:55)
[2017-12-11] MEDS ORDERED: Ketorolac Tromethamine 30 MG/ML VIAL ONE (01:55)
== END 2017-12-11 02:05 | disposition home or self-care (01) ==
LOC: BURERS 01:32
DX: S23.3XXA Sprain of ligaments of thoracic spine, initial encounter (principal); S13.4XXA Sprain of ligaments of cervical spine, initial encounter; E78.5 Hyperlipidemia, unspecified; I10 Essential (primary) hypertension; E11.9 Type 2 diabetes mellitus without complications; F17.210 Nicotine dependence, cigarettes, uncomplicated; X58.XXXA Exposure to other specified factors, initial encounter
CPT/HCPCS: 96372; J1885

== ENCOUNTER 2019-03-30 12:26 | Outpatient (CLI) | payer OTHER ==
--- NOTE | 2019-03-31 07:57 | ULT ---
CAROTID ULTRASOUND: 03/30/19 Color Doppler duplex ultrasonography of the carotid and vertebral system was performed in this patien t with a diagnosis of dizziness. The 2D imagines show no large amounts of plaque to suggest obstruction. The Doppler flows throughout each carotid system were normal. Peak flow in the right ICA was 97/39 cm/s and in the left ICA 70/29. Systolic velocity ratios were normal bilaterally. Flows in the common and external carotid arteries were normal bilaterally. Vertebral flow was present bilaterally and was antegrade as expected. IMPRESSION: Unremarkable carotid Doppler ultrasound. POS: HOME
== END 2019-03-30 12:27 | disposition home or self-care (01) ==
LOC: BURULT 12:26
PROVIDERS: ATTEND Family Medicine
DX: R42 Dizziness and giddiness (principal)
CPT/HCPCS: 93880

== ENCOUNTER 2019-08-05 13:53 | Emergency (ER) | payer OTHER ==
[2019-08-05 14:37] LABS: #Lymphocytes 1.6 thou/uL (1.20-3.40); #Monocytes 0.2 thou/uL (0.11-0.59); #Neutrophils 3.1 thou/uL (1.40-6.50); %Basophils 0.9 % (0.0-1.0); %Eosinophils 0.7 % (0.0-10.0); %Lymphocytes 32.3 % (21.0-51.0); %Monocytes 3.3 % (0.0-10.0); %Neutrophils 62.8 % (42.0-75.0); Hemoglobin 15.1 g/dL (12.0-16.0); Mean Corpuscular HGB CONC 34.3 g/dL (32.0-36.0); Mean Corpuscular Hemoglobin 31.5 pg (27.0-31.0); Mean Corpuscular Volume 91.8 fL (78.0-98.0); Mean Platelet Volume 7.2 fL (7.4-10.4); Platelet Count 358 thou/uL (130-400); RBC Distribution Width 10.7 % (11.5-14.5); White Blood Cell (WBC) Count 4.9 thou/uL (4.8-10.8)
[2019-08-05 15:03] LABS: ALT (SGPT) 19 U/L (8-55); AST (SGOT) 18 U/L (5-34); Alkaline Phosphatase 96 U/L (40-110); Anion Gap 12 mmol/L (10-20); BUN (Urea Nitrogen) 10 mg/dL (9.8-20.1); Bilirubin, Total 0.4 mg/dL (0.2-1.2); Calc. Creatinine Clearance 0 mL/min (70-130); Calcium 9.1 mg/dL (7.8-10.44); Carbon Dioxide 28 mmol/L (22-29); Chloride 105 mmol/L (98-107); Estimated GFR-MDRD 75; Glucose 171 mg/dL (70-105); Potassium 3.4 mmol/L (3.5-5.1); Sodium 142 mmol/L (136-145)
--- NOTE | 2019-08-05 20:34 | RAD ---
CHEST TWO VIEWS: 08/05/19 Comparison is made with the 06/16/16 study. The heart remains normal in size and the lungs are clear. There is no sign of infiltrate, effusion, o r other findings of pneumonia. There is no vascular congestion or edema. The bony structures showed n o acute change. IMPRESSION: No acute findings. POS: HOME
== END 2019-08-05 15:30 | disposition home or self-care (01) ==
LOC: BURERS 13:53
DX: E87.6 Hypokalemia (principal); B34.9 Viral infection, unspecified; E78.5 Hyperlipidemia, unspecified; I10 Essential (primary) hypertension; F17.210 Nicotine dependence, cigarettes, uncomplicated; Z71.6 Tobacco abuse counseling
CPT/HCPCS: 36415; 71046; 80053; 83880; 84484; 85025; 93005; 94760; 99406; J7620

== ENCOUNTER 2020-08-30 11:29 | Emergency (ER) | payer OTHER ==
[2020-08-30] MEDS ORDERED: Nitroglycerin 0.4 MG TAB 1 EACH ONE (11:49)
[2020-08-30] MEDS ORDERED: Aspirin Chewable 81 MG TAB ONE (11:49)
[2020-08-30 12:17] LABS: #Basophils 0.1 thou/uL (0.0-0.2); #Eosinphils 0.1 thou/uL (0.0-0.7); #Lymphocytes 2.9 thou/uL (1.20-3.40); #Monocytes 0.4 thou/uL (0.11-0.59); #Neutrophils 2.6 thou/uL (1.40-6.50); %Basophils 1.4 % (0.0-1.0); %Eosinophils 2.1 % (0.0-10.0); %Lymphocytes 47.3 % (21.0-51.0); %Monocytes 6.1 % (0.0-10.0); %Neutrophils 43.2 % (42.0-75.0); Hemoglobin 16.4 g/dL (12.0-16.0); Mean Corpuscular Hemoglobin 32.2 pg (27.0-31.0); Mean Corpuscular Volume 94.7 fL (78.0-98.0); Mean Platelet Volume 8.2 fL (7.4-10.4); Platelet Count 281 thou/uL (130-400); RBC Distribution Width 11.1 % (11.5-14.5); Red Blood Cell (RBC) Count 5.11 mill/uL (4.20-5.40); White Blood Cell (WBC) Count 6.1 thou/uL (4.8-10.8)
[2020-08-30 12:31] LABS: ALT (SGPT) 22 U/L (8-55); AST (SGOT) 21 U/L (5-34); Alkaline Phosphatase 96 U/L (40-110); Anion Gap 13 mmol/L (10-20); BUN (Urea Nitrogen) 11 mg/dL (9.8-20.1); Bilirubin, Total 0.4 mg/dL (0.2-1.2); Calc. Creatinine Clearance 0 mL/min (70-130); Calcium 9.7 mg/dL (7.8-10.44); Carbon Dioxide 26 mmol/L (22-29); Chloride 105 mmol/L (98-107); Globulin 2.9 g/dL (2.4-3.5); Glucose 87 mg/dL (70-105); Lipase 22 U/L (8-78); Potassium 3.8 mmol/L (3.5-5.1); Protein, Total 6.9 g/dL (6.0-8.3); Sodium 140 mmol/L (136-145)
[2020-08-30 12:57] LABS: Bilirubin Negative (Negative); Blood, Urine Small (Negative); Clarity Clear (Clear); Glucose, Urine (Dipstick) Negative (Negative); Ketone, Urine Negative (Negative); Leukocyte Negative (Negative); Nitrite Negative (Negative); Protein, Urine (Dipstick) Negative (Neg-Trace); RBC/HPF 0-3 HPF (0-3); Urobilinogen 0.2 mg/dL (Less than 2); WBC/HPF 0-3 HPF (0-3)
[2020-08-30 12:58] LABS: Bacteria/HPF Rare-Few HPF (None Seen); Squamous Epithelial 0-3 HPF (0-3)
[2020-08-30 13:03] LABS: Amphetamine Not Detected (NotDetected); Barbiturates Screen Not Detected (NotDetected); Benzodiazepine Screen Not Detected (NotDetected); Cocaine Metabolite Screen Not Detected (NotDetected); Methadone Not Detected (NotDetected); Methamphetamine Not Detected (NotDetected); Opiate Screen Not Detected (NotDetected); Oxycodone Screen Not Detected (NotDetected); Phencyclidine (PCP) Not Detected (NotDetected); THC/Cannabinoid Screen Not Detected (NotDetected); Tricyclic Screen Not Detected (NotDetected)
[2020-08-30 13:04] LABS: Medtox Control Line Valid? VALID (VALID)
[2020-08-30 14:55] LABS: Troponin I Less than 0.010 ng/mL (< 0.028)
== END 2020-08-30 15:15 | disposition home or self-care (01) ==
LOC: BURERS 11:29
DX: R07.89 Other chest pain (principal); I10 Essential (primary) hypertension; E78.5 Hyperlipidemia, unspecified; F17.210 Nicotine dependence, cigarettes, uncomplicated
CPT/HCPCS: 36415; 71045; 80053; 80306; 81003; 81015; 83690; 83880; 84484; 85025; 85379; 93005; 94760

== ENCOUNTER 2020-12-25 19:50 | Emergency (ER) | payer OTHER ==
[2020-12-25] MEDS ORDERED: Aspirin Chewable 81 MG TAB ONE (20:08)
[2020-12-25] MEDS ORDERED: Nitroglycerin 0.4 MG TAB 1 EACH ONE (20:08)
[2020-12-25 20:25] LABS: #Basophils 0.1 thou/uL (0.0-0.2); #Eosinphils 0.2 thou/uL (0.0-0.7); #Lymphocytes 3.1 thou/uL (1.20-3.40); #Monocytes 0.5 thou/uL (0.11-0.59); #Neutrophils 2.7 thou/uL (1.40-6.50); %Basophils 1.4 % (0.0-1.0); %Eosinophils 2.6 % (0.0-10.0); %Lymphocytes 47.7 % (21.0-51.0); %Monocytes 7.1 % (0.0-10.0); %Neutrophils 41.3 % (42.0-75.0); Hemoglobin 15.7 g/dL (12.0-16.0); Mean Corpuscular HGB CONC 33.1 g/dL (32.0-36.0); Mean Corpuscular Hemoglobin 32.1 pg (27.0-31.0); Mean Corpuscular Volume 97.2 fL (78.0-98.0); Mean Platelet Volume 7.9 fL (7.4-10.4); Platelet Count 315 thou/uL (130-400); RBC Distribution Width 11.7 % (11.5-14.5); Red Blood Cell (RBC) Count 4.88 mill/uL (4.20-5.40); White Blood Cell (WBC) Count 6.5 thou/uL (4.8-10.8)
[2020-12-25 20:35] LABS: ALT (SGPT) 20 U/L (8-55); AST (SGOT) 18 U/L (5-34); Albumin 3.9 g/dL (3.5-5.0); Alkaline Phosphatase 104 U/L (40-110); Anion Gap 16 mmol/L (10-20); BUN (Urea Nitrogen) 10 mg/dL (9.8-20.1); Bilirubin, Total 0.3 mg/dL (0.2-1.2); Calc. Creatinine Clearance 0 mL/min (70-130); Calcium 9.5 mg/dL (7.8-10.44); Carbon Dioxide 24 mmol/L (22-29); Chloride 106 mmol/L (98-107); Globulin 3.1 g/dL (2.4-3.5); Glucose 94 mg/dL (70-105); Lipase 35 U/L (8-78); Potassium 3.6 mmol/L (3.5-5.1); Sodium 142 mmol/L (136-145)
== END 2020-12-25 21:12 | disposition home or self-care (01) ==
LOC: BURERS 19:50
DX: I10 Essential (primary) hypertension (principal); R07.89 Other chest pain; E78.5 Hyperlipidemia, unspecified; F17.210 Nicotine dependence, cigarettes, uncomplicated; Z79.899 Other long term (current) drug therapy
CPT/HCPCS: 71045; 80053; 83690; 83880; 84484; 85025; 85379; 93005

== ENCOUNTER 2021-01-07 11:56 | Emergency (ER) | payer OTHER | END 2021-01-07 12:37 | disposition left against medical advice (07) | LOC: BURERS 11:56 | DX: Z53.21 Procedure and treatment not carried out due to patient leaving prior to being seen by health care provider (principal) ==

== ENCOUNTER 2021-08-26 01:55 | Emergency (ER) | payer OTHER | END 2021-08-26 02:23 | disposition home or self-care (01) | LOC: BURERS 01:55 | DX: I10 Essential (primary) hypertension (principal); E78.5 Hyperlipidemia, unspecified; F17.210 Nicotine dependence, cigarettes, uncomplicated; G61.0 Guillain-Barre syndrome; Z79.899 Other long term (current) drug therapy | CPT/HCPCS: 99283 ==

== ENCOUNTER 2022-04-14 20:08 | Emergency (ER) | payer OTHER ==
[2022-04-14] MEDS ORDERED: Metoclopramide HCl 10 MG/2 ML VIAL ONE (20:44)
[2022-04-14] MEDS ORDERED: Lorazepam 2 MG/ML VIAL ONE (20:44)
[2022-04-14 20:56] LABS: Bilirubin Negative (Negative); Blood, Urine Small (Negative); Clarity Clear (Clear); Glucose, Urine (Dipstick) Negative (Negative); Ketone, Urine Negative (Negative); Leukocyte Negative (Negative); Nitrite Negative (Negative); Protein, Urine (Dipstick) Negative (Neg-Trace); Urobilinogen 0.2 mg/dL (Less than 2); pH, Urine 5.5 (5.0-9.0)
[2022-04-14 20:59] LABS: Hemoglobin 16.1 g/dL (12.0-16.0); Mean Corpuscular HGB CONC 33.6 g/dL (32.0-36.0); Mean Corpuscular Hemoglobin 32.5 pg (27.0-31.0); Mean Corpuscular Volume 96.7 fl (78.0-98.0); Mean Platelet Volume 7.7 fL (7.4-10.4); Platelet Count 366 thou/uL (130-400); RBC Distribution Width 11.5 % (11.5-14.5); Red Blood Cell (RBC) Count 4.96 mill/uL (4.20-5.40); White Blood Cell (WBC) Count 6.7 thou/uL (4.8-10.8)
[2022-04-14 21:08] LABS: Specific Gravity, Urine 1.019 (1.002-1.036)
[2022-04-14 21:12] LABS: Bacteria/HPF Rare-Few HPF (None Seen); Mucous/LPF Few LPF (<2+); RBC/HPF 0-3 HPF (0-3); Squamous Epithelial 0-3 HPF (0-3); WBC/HPF 0-3 HPF (0-3)
[2022-04-14 21:13] LABS: ALT (SGPT) 24 U/L (8-55); AST (SGOT) 18 U/L (5-34); Albumin 4.2 g/dL (3.5-5.0); Alkaline Phosphatase 99 U/L (40-110); Anion Gap 19 mmol/L (10-20); BUN (Urea Nitrogen) 16 mg/dL (9.8-20.1); Bilirubin, Total 0.3 mg/dL (0.2-1.2); Calc. Creatinine Clearance 0 mL/min (70-130); Calcium 9.6 mg/dL (7.8-10.44); Carbon Dioxide 23 mmol/L (22-29); Chloride 107 mmol/L (98-107); Estimated GFR 76; Globulin 2.6 g/dL (2.4-3.5); Glucose 153 mg/dL (70-105); Potassium 3.9 mmol/L (3.5-5.1); Protein, Total 6.8 g/dL (6.0-8.3); Sodium 145 mmol/L (136-145)
[2022-04-14 21:46] LABS: Eosinophils 7 % (0-10); Lymphocytes 55 % (21-51); MDiff Complete? YES; Monocytes 5 % (0-10); Neutrophil 31 % (42-75)
== END 2022-04-14 21:38 | disposition home or self-care (01) ==
LOC: BURERS 20:08
DX: I10 Essential (primary) hypertension (principal); E78.5 Hyperlipidemia, unspecified; F17.210 Nicotine dependence, cigarettes, uncomplicated; Z79.899 Other long term (current) drug therapy
CPT/HCPCS: 71045; 80053; 81003; 81015; 84484; 85025; 93005; 96374; 96375; J2060; J2765

== ENCOUNTER 2023-11-12 16:27 | Outpatient (CLI) | payer OTHER | END 2023-11-12 16:28 | disposition home or self-care (01) | LOC: BURRAD 16:27 | PROVIDERS: ATTEND Family Medicine | DX: M25.551 Pain in right hip (principal); M16.11 Unilateral primary osteoarthritis, right hip; M47.26 Other spondylosis with radiculopathy, lumbar region | CPT/HCPCS: 72100; 72170 ==